=== PATIENT | female | born 1985 | race Hispanic/Latino ===

== ENCOUNTER 2020-10-02 17:06 | Emergency (ER) | payer OTHER ==
[2020-10-02 19:32] LABS: HEMATOCRIT 38.7 % (37.0-47.0); HEMOGLOBIN 12.7 g/dl (12.0-16.0); IMMATURE GRANULOCYTES 0.4 % (0.0-5.0); MEAN CELL VOLUME 90.6 fL CALC (80.0-100.0); MEAN CORPUSCULAR HGB 29.7 pG CALC (26.0-32.0); MEAN CORPUSCULAR HGB CONC 32.8 g/dL CAL (32.0-36.0); NEUT# 4.02 thou/uL (2.00-7.15); RED BLOOD COUNT 4.27 mill/uL (4.20-5.60); RED CELL DISTRI WIDTH 12.8 % (11.5-15.5)
[2020-10-02 20:05] LABS: ALBUMIN 4.3 g/dL (3.2-5.0); ALKALINE PHOSPHATASE 60 u/l (38-126); ANION GAP 12 (6-22 (CALC)); BILIRUBIN, TOTAL 0.5 mg/dL (0.0-1.4); BUN 14 mg/dL (7-17); BUN/CREATININE RATIO 14 (12-20 (CALC)); CARBON DIOXIDE 27 mmol/l (22-30); CHLORIDE 102 mmol/l (95-108); GFR > 60 ML/MIN (>=60 (CALC)); GFR FOR AFR.AMER. > 60 ML/MIN (>=60 (CALC)); LIPASE 125 u/l (23-300); POTASSIUM 3.8 mmol/l (3.5-5.1); SGOT/AST 44 u/l (14-36); SODIUM 137 mmol/l (137-146); TOTAL PROTEIN 8.1 g/dL (6.3-8.2)
[2020-10-02 20:22] LABS: BETA-HCG, QUANT(RESULT NUMBER) <2 mIU/mL
[2020-10-02 23:23] LABS: URINE BILIRUBIN - DIPSTICK NEGATIVE (NEGATIVE); URINE BLOOD DIPSTICK LARGE (NEGATIVE); URINE COLOR YELLOW; URINE GLUCOSE - DIPSTICK NEGATIVE (NEGATIVE); URINE KETONE NEGATIVE (NEGATIVE); URINE LEUK ESTERASE NEGATIVE (NEGATIVE); URINE PROTEIN - DIPSTICK NEGATIVE (NEG-TRACE); URINE UROBILINOGEN - DIPSTICK 0.2 E.U./dL (0.2)
[2020-10-02 23:28] LABS: URINE NITRITE - DIPSTICK NEGATIVE (Negative)
[2020-10-02] MEDS ORDERED: PROVERA10 MG PO (23:37)
[2020-10-02 23:42] LABS: URINE MUCUS FEW hpf (NONE-FEW); URINE SQUAMOUS EPITHELIAL CELL FEW EPI/hpf (0-FEW); URINE WBC 0-2 WBC/hpf (0-5)
[2020-10-02] MEDS ORDERED: NAPROXEN500 MG PO (23:53)
[2020-10-02] MEDS ORDERED: TRAMADOL HCL50 MG PO (23:53)
[2020-10-02 23:55] VITALS: BP 108/62
== END 2020-10-03 00:11 | disposition home or self-care (01) ==
LOC: ED 17:06
PROVIDERS: Family Medicine
DX: N94.6 Dysmenorrhea, unspecified (principal)
CPT/HCPCS: Q9967

== ENCOUNTER 2021-04-09 12:24 | Emergency (ER) | payer OTHER ==
[~2021-04-09] VITALS: Ht 165.1 cm; Wt 90.0 kg
[~2021-04-09 12:24] MED LIST: NAPROXEN500 MG PO; PROVERA10 MG PO; TRAMADOL HCL50 MG PO
[2021-04-09 12:39] VITALS: BP 105/82
[2021-04-09 12:46] VITALS: BP 110/74
[2021-04-09 13:00] VITALS: BP 100/69
[2021-04-09 14:00] VITALS: BP 103/72
[2021-04-09] MEDS ORDERED: IPRATROPIU0.5 MG/3 M IN (14:09)
[2021-04-09] MEDS ORDERED: PROAIR HFA108 MCG/AC PO (14:09)
[2021-04-09] MEDS ORDERED: ZPAK PO (14:09)
[2021-04-09 14:23] VITALS: BP 103/72
== END 2021-04-09 14:47 | disposition home or self-care (01) ==
LOC: ED 12:24
DX: U07.1 COVID-19 (principal); R05.9 Cough, unspecified; R09.89 Other specified symptoms and signs involving the circulatory and respiratory systems; R52 Pain, unspecified; R51.9 Headache, unspecified

== ENCOUNTER 2021-06-17 19:56 | Emergency (ER) | payer OTHER ==
[~2021-06-17] VITALS: Ht 165.1 cm; Wt 90.0 kg
[~2021-06-17 19:56] MED LIST changes: +IPRATROPIU0.5 MG/3 M IN; +PROAIR HFA108 MCG/AC PO; +ZPAK PO
[2021-06-17 20:04] VITALS: BP 108/74
[2021-06-17 20:16] VITALS: BP 125/87
[2021-06-17 20:32] LABS: URINE BILIRUBIN - DIPSTICK NEGATIVE (NEGATIVE); URINE BLOOD DIPSTICK MODERATE (NEGATIVE); URINE COLOR YELLOW; URINE GLUCOSE - DIPSTICK NEGATIVE (NEGATIVE); URINE KETONE NEGATIVE (NEGATIVE); URINE LEUK ESTERASE NEGATIVE (NEGATIVE); URINE PROTEIN - DIPSTICK NEGATIVE (NEG-TRACE); URINE SPECIFIC GRAVITY 1.025; URINE UROBILINOGEN - DIPSTICK 0.2 E.U./dL (0.2)
[2021-06-17 20:34] LABS: URINE NITRITE - DIPSTICK NEGATIVE (Negative)
[2021-06-17 20:43] LABS: URINE SQUAMOUS EPITHELIAL CELL FEW EPI/hpf (0-FEW); URINE WBC 0-2 WBC/hpf (0-5)
[2021-06-17 20:55] VITALS: BP 108/67
[2021-06-17 21:00] VITALS: BP 105/63
[2021-06-17] MEDS ORDERED: KEFLEX500 MG PO (21:13)
[2021-06-17 21:24] VITALS: BP 105/63
[2021-06-18] MEDS ORDERED: ULTRAM50 M1 PO (22:25)
== END 2021-06-17 21:36 | disposition home or self-care (01) ==
LOC: ED 19:56
DX: N39.0 Urinary tract infection, site not specified (principal); B34.9 Viral infection, unspecified; J45.909 Unspecified asthma, uncomplicated; Z20.822 Contact with and (suspected) exposure to COVID-19

== ENCOUNTER 2021-06-18 19:04 | Emergency (ER) | payer OTHER ==
[~2021-06-18] VITALS: Ht 165.1 cm; Wt 90.0 kg
[~2021-06-18 19:04] MED LIST changes: +KEFLEX500 MG PO
[2021-06-18 20:15] VITALS: BP 107/68
[2021-06-18 20:37] LABS: HEMATOCRIT 34.4 % (37.0-47.0); HEMOGLOBIN 11.8 g/dl (12.0-16.0); IMMATURE GRANULOCYTES 0.1 % (0.0-5.0); MEAN CORPUSCULAR HGB 30.2 pG CALC (26.0-32.0); MEAN CORPUSCULAR HGB CONC 34.3 g/dL CAL (32.0-36.0); NEUT# 5.81 thou/uL (2.00-7.15); RED BLOOD COUNT 3.91 mill/uL (4.20-5.60)
[2021-06-18 20:46] LABS: ALBUMIN 3.8 g/dL (3.2-5.0); ALKALINE PHOSPHATASE 73 u/l (38-126); AMYLASE 57 u/l (30-110); ANION GAP 9 (6-22 (CALC)); BILIRUBIN, TOTAL 0.4 mg/dL (0.0-1.4); BUN 11 mg/dL (7-17); BUN/CREATININE RATIO 13 (12-20 (CALC)); CARBON DIOXIDE 24 mmol/l (22-30); CHLORIDE 106 mmol/l (95-108); CREATININE 0.9 mg/dL (0.5-1.0); GFR > 60 ML/MIN (>=60 (CALC)); GFR FOR AFR.AMER. > 60 ML/MIN (>=60 (CALC)); LIPASE 106 u/l (23-300); POTASSIUM 3.6 mmol/l (3.5-5.1); SGOT/AST 78 u/l (14-36); SODIUM 136 mmol/l (137-146)
[2021-06-18 21:00] VITALS: BP 97/64
[2021-06-18 22:05] LABS: URINE BILIRUBIN - DIPSTICK NEGATIVE (NEGATIVE); URINE BLOOD DIPSTICK MODERATE (NEGATIVE); URINE COLOR YELLOW; URINE GLUCOSE - DIPSTICK NEGATIVE (NEGATIVE); URINE KETONE NEGATIVE (NEGATIVE); URINE LEUK ESTERASE NEGATIVE (NEGATIVE); URINE PROTEIN - DIPSTICK TRACE mg/dL (NEG-TRACE); URINE SPECIFIC GRAVITY >=1.030; URINE UROBILINOGEN - DIPSTICK 0.2 E.U./dL (0.2)
[2021-06-18 22:08] LABS: URINE NITRITE - DIPSTICK NEGATIVE (Negative)
[2021-06-18 22:13] LABS: URINE SQUAMOUS EPITHELIAL CELL FEW EPI/hpf (0-FEW); URINE WBC 0-2 WBC/hpf (0-5)
[2021-06-18] MEDS ORDERED: ULTRAM50 M1 PO (22:25)
[2021-06-18 22:34] VITALS: BP 97/64
== END 2021-06-18 22:40 | disposition home or self-care (01) ==
LOC: ED 19:04
PROVIDERS: Emergency Medicine
DX: N39.0 Urinary tract infection, site not specified (principal); B34.9 Viral infection, unspecified; J45.909 Unspecified asthma, uncomplicated